=== PATIENT | male | born 1970 | race Caucasian/White ===

== ENCOUNTER 2017-06-03 07:10 | Outpatient (CLI) ==
--- NOTE | 2017-06-03 08:08 | US ---
EXAM: Abdominal ultrasound limited HISTORY: Pain in the upper abdomen for 1 year COMPARISON: CT abdomen pelvis 07/24/2012 TECHNIQUE: Sonographic and limited Doppler evaluation of the right upper quadrant was performed. Ev aluation is limited due to lack of contrast FINDINGS: The liver is increased in echogenicity and measures 22.7 cm. The portal vein is patent. The gallbladder demonstrates no stones or sludge. The gallbladder wall measures 0.2 cm. Common mati e duct is unremarkable and measures 0.5 cm in diameter. The pancreas is unremarkable in appearance. The right kidney measures 12.5 x 5.2 x 4.9 cm with cortical thickness of 1.0 centimeters. IMPRESSION: 1. Increased echogenicity of the liver suggestive of hepatic steatosis with measurements consistent with hepatomegaly. 2. No additional abnormality is identified to account for patient's symptoms.
== END 2017-06-03 07:11 | disposition home or self-care (01) ==
LOC: RAD 07:10
PROVIDERS: ATTEND Family Medicine
DX: R10.10 Upper abdominal pain, unspecified (principal)

== ENCOUNTER 2017-06-04 08:48 | Outpatient (CLI) | END 2017-06-04 08:49 | disposition home or self-care (01) | LOC: RAD 08:48 | PROVIDERS: ATTEND Family Medicine | DX: R10.10 Upper abdominal pain, unspecified (principal) ==

== ENCOUNTER 2017-06-11 08:31 | Outpatient (CLI) ==
--- NOTE | 2017-06-11 10:40 | NM ---
EXAM: Hepatobiliary imaging HISTORY: Right upper quadrant pain COMPARISON: Limited abdominal ultrasound on 06/03/2017 showed fatty liver. TECHNIQUE: Patient was injected 5.4 mCi of technetium 99m Choletec intravenously. Multiple anterior scintigraphic images of the right upper quadrant region of the abdomen were obtained up to 1 hour i nterval. The patient was infused 2 mcg of cholecystokinin intravenously. Gallbladder ejection frac tion was calculated. FINDINGS: There is normal visualization of liver, gallbladder, bile duct and small bowel loops. Gal lbladder ejection fraction is 52%. IMPRESSION: Normal study
== END 2017-06-11 08:32 | disposition home or self-care (01) ==
LOC: RAD 08:31
PROVIDERS: ATTEND Family Medicine
DX: R10.10 Upper abdominal pain, unspecified (principal)

== ENCOUNTER 2017-08-02 08:11 | Day surgery (SDC) ==
[2017-08-02] MEDS ORDERED: DIPRIVAN 20 ML VIAL IVP ONE (11:30)
[2017-08-02] MEDS ORDERED: VERSED ONE (11:30)
[2017-08-02 12:46] VITALS: BP 110/73; TEMP 97.9
--- NOTE | 2017-08-02 15:29 | OP ---
PROCEDURE: COLONOSCOPY TO THE CECUM WITH SNARE POLYPECTOMY. ENDOSCOPIST: Joe STOUT M.D. INDICATION: RECTAL BLEEDING INSTRUMENT: [id number]. MEDICATION: PER ANESTHESIA. PROCEDURE: The patient was positioned for colonoscopy. The digital rectal exam was negative. The colonoscope was inserted through the anus and advanced to the cecum. The cecum was identified using the ileocecal valve and the appendiceal orifice as landmarks. The scope was slowly withdrawn through an adequately prepped colon. A few diverticuli were noted in the left colon. A 1cm pedunculated polyp at 15cm removed using snare cautery. Hemorrhoids were seen on retroflex exam. No other abnormalities were noted. The patient tolerated the procedure without immediate complication. Withdrawal time 12 minutes and 20 seconds. PLAN: 1. Repeat colonoscopy in 3 years. CC: Dr. Patito POND
== END 2017-08-02 12:57 | disposition home or self-care (01) ==
LOC: SURG 08:11
PROVIDERS: ATTEND Internal Medicine Gastroenterology
DX: K62.5 Hemorrhage of anus and rectum (principal); D12.7 Benign neoplasm of rectosigmoid junction; K64.9 Unspecified hemorrhoids; K57.30 Diverticulosis of large intestine without perforation or abscess without bleeding